=== PATIENT | female | born 1970 | race Caucasian/White ===

== ENCOUNTER 2019-02-20 15:48 | Day surgery (SDC) | payer BC ==
[2019-02-20] MEDS ORDERED: NEOMYC/POLYMYX/BACIT 30 GM OINT (15:49)
[2019-02-20] MEDS ORDERED: BUPIVACAINE 0.25%/EPI (SDV) 30 ML INJ (15:49)
[2019-02-20] MEDS ORDERED: POLYMYXIN/BACITRACIN 1L IRRIG (15:49)
[2019-02-20] MEDS: LACTATED RINGER'S 1,000 ML IV (16:44)
[2019-02-20] MEDS: POLYMYXIN/BACITRACIN 1L IRRIG IRR (18:55)
[2019-02-20] MEDS ORDERED: PROPOFOL 20 ML (18:55)
[2019-02-20] MEDS ORDERED: LIDOCAINE 2% (SDV) 5 ML INJ (18:55)
[2019-02-20] MEDS ORDERED: MIDAZOLAM 1 MG/ML 2 ML INJ (18:56)
[2019-02-20] MEDS ORDERED: DESFLURANE 15 MIN (19:00)
[2019-02-20] MEDS ORDERED: CEFAZOLIN 1 GM INJ (19:00)
[2019-02-20] MEDS ORDERED: KETOROLAC 30 MG INJ IV (19:00)
[2019-02-20] MEDS ORDERED: morphine 2 MG INJ IV (19:00)
[2019-02-20] MEDS ORDERED: ROPIVACAINE 0.5 % 30 ML VIAL (19:02)
[2019-02-20] MEDS ORDERED: DEXAMETHASONE 4 MG/ML 5 ML INJ ×2 (19:04→19:22)
[2019-02-20] MEDS ORDERED: ONDANSETRON 4 MG INJ ×2 (19:22→20:36)
[2019-02-20] MEDS ORDERED: METOCLOPRAMIDE 10 MG INJ (19:22)
[2019-02-20] MEDS ORDERED: FAMOTIDINE 20 MG INJ (19:22)
[2019-02-20] MEDS: NEOMYC/POLYMYX/BACIT 30 GM OINT TOP ×2 (19:43→20:40)
[2019-02-20] MEDS ORDERED: THROMBIN 5000 UNIT VIAL (20:24)
[2019-02-20] MEDS ORDERED: CA CHLORIDE 10% 10 ML SYRINGE ×2 (20:25→20:26)
[2019-02-20] MEDS ORDERED: CA CHLORIDE (GM) 10% 10 ML INJ (20:26)
[2019-02-20] MEDS ORDERED: KETOROLAC 30 MG INJ (20:36)
[2019-02-20] MEDS ORDERED: SUGAMMADEX SODIUM 200 MG/2 ML VIAL IV (20:49)
[2019-02-20] MEDS ORDERED: HYDROmorphONE 1 MG/5 ML IV SYRINGE IV (21:30)
[2019-02-20] MEDS ORDERED: OXYCODONE/ACETAMINOPHEN (5/325) TAB PO ×2 (21:30)
== END 2019-02-20 22:46 | disposition home or self-care (01) ==
LOC: SDS 15:48
DX: S92.351K Displaced fracture of fifth metatarsal bone, right foot, subsequent encounter for fracture with nonunion (principal); S86.311D Strain of muscle(s) and tendon(s) of peroneal muscle group at lower leg level, right leg, subsequent encounter; X58.XXXD Exposure to other specified factors, subsequent encounter
CPT/HCPCS: 28122; 73630; 82306; 84703; 88307; 88311